=== PATIENT | female | born 1985 | race Caucasian/White ===

== ENCOUNTER → 2024-05-07 11:23 | Outpatient (REF) | payer BC, SELFPAY | LOC: HWEVLT 11:23 | PROVIDERS: ATTENDING PHYSICIAN Radiology Vascular & Interventional Radiology | DX: I83.891 Varicose veins of right lower extremity with other complications (principal) | CPT/HCPCS: 93971 ==

== ENCOUNTER → 2024-06-24 09:21 | Outpatient (REF) | payer BC, SELFPAY | LOC: HWEVLT 09:21 | PROVIDERS: ATTENDING PHYSICIAN Radiology Diagnostic Radiology | DX: I83.891 Varicose veins of right lower extremity with other complications (principal) | CPT/HCPCS: 36478; C1769 ==

== ENCOUNTER → 2024-07-07 10:09 | Outpatient (REF) | payer BC, SELFPAY | LOC: CLAB 10:09 | PROVIDERS: ATTENDING PHYSICIAN Emergency Medicine | DX: J02.9 Acute pharyngitis, unspecified (principal) | CPT/HCPCS: 87070 ==

== ENCOUNTER → 2024-07-09 08:58 | Outpatient (REF) | payer BC, SELFPAY | LOC: HWEVLT 08:58 | PROVIDERS: ATTENDING PHYSICIAN Radiology Vascular & Interventional Radiology | DX: I83.891 Varicose veins of right lower extremity with other complications (principal) | CPT/HCPCS: 93971 ==